=== PATIENT | female | born 1960 | race Caucasian/White ===

== ENCOUNTER 2022-04-26 15:17 | Outpatient (CLI) | payer BC ==
[2022-04-26 15:39] LABS: #Basophils 0.1 thou/uL (0.0-0.2); #Eosinphils 0.3 thou/uL (0.0-0.7); #Lymphocytes 2.3 thou/uL (1.20-3.40); #Monocytes 0.5 thou/uL (0.11-0.59); #Neutrophils 3.9 thou/uL (1.40-6.50); %Basophils 1.1 % (0.0-1.0); %Lymphocytes 32.4 % (21.0-51.0); %Monocytes 6.4 % (0.0-10.0); %Neutrophils 56.1 % (42.0-75.0); Hemoglobin 12.5 g/dL (12.0-16.0); Mean Corpuscular HGB CONC 32.6 g/dL (32.0-36.0); Mean Corpuscular Hemoglobin 31.4 pg (27.0-31.0); Mean Corpuscular Volume 96.2 fl (78.0-98.0); Mean Platelet Volume 8.1 fL (7.4-10.4); Platelet Count 274 thou/uL (130-400); RBC Distribution Width 12.8 % (11.5-14.5); Red Blood Cell (RBC) Count 3.99 mill/uL (4.20-5.40); White Blood Cell (WBC) Count 6.9 thou/uL (4.8-10.8)
[2022-04-26 16:03] LABS: Anion Gap 10 mmol/L (10-20); BUN (Urea Nitrogen) 12 mg/dL (9.8-20.1); Calc. Creatinine Clearance 0 mL/min (70-130); Calcium 8.7 mg/dL (7.8-10.44); Carbon Dioxide 25 mmol/L (22-29); Chloride 109 mmol/L (98-107); Estimated GFR 67; Glucose 89 mg/dL (70-105); Potassium 4.1 mmol/L (3.5-5.1); Sodium 140 mmol/L (136-145)
== END 2022-04-26 15:18 | disposition home or self-care (01) ==
LOC: MADLAB 15:17
PROVIDERS: ATTEND Family Medicine
DX: Z01.818 Encounter for other preprocedural examination (principal)
CPT/HCPCS: 36415; 71046; 80048; 83036; 85025; 93005; 93010

== ENCOUNTER 2023-01-05 14:49 | Outpatient (CLI) | payer BC | END 2023-01-05 14:50 | disposition home or self-care (01) | LOC: MADLAB 14:49 | PROVIDERS: ATTEND Registered Nurse | DX: M25.511 Pain in right shoulder (principal) ==